=== PATIENT | female | born 1985 | race American Indian/Alaskan Native ===

== ENCOUNTER 2018-07-05 00:54 | Emergency (ER) | payer OTHER ==
[2018-07-05] MEDS ORDERED: DUONEB *Not for PRN Use IH ONE ×2 (01:06→01:25)
[2018-07-05] MEDS ORDERED: TYLENOL ONE (01:19)
[2018-07-05] MEDS ORDERED: TYLENOL PO ONE (01:23)
--- NOTE | 2018-07-05 01:46 | XRay Report ---
PROCEDURE: XR CHEST ROUTINE 2V TECHNIQUE: PA and lateral chest radiographs were obtained. HISTORY: cough COMPARISONS: None. FINDINGS: Heart: Normal. Mediastinum/Vessels: Normal. Lungs/Pleural space: Normal. Bony thorax: No acute osseous abnormality. IMPRESSION: Normal examination. This document is electronically signed by Torri Noland DO., July 05 2018 01:44:04 AM ET
[2018-07-05 02:01] LABS: Hematocrit 39.8 % (30.3-42.9); Hemoglobin 13.6 gm/dl (10.1-14.3); Mean Corpuscular HGB Conc 34 % (30-34); Mean Corpuscular Volume 93 fl (79-97); Platelet Count 235 K/mm3 (140-440); Red Blood Count 4.29 M/mm3 (3.65-5.03); Red Cell Distribution Width 14.1 % (13.2-15.2)
[2018-07-05 02:10] LABS: Bacteria,Urine 1+ /HPF (Negative); Bilirubin,Urine NEG (Negative); Blood,Urine SM (Negative); Color,Urine Yellow (Yellow); Mucus,Urine 3+ /HPF; Protein,Urine <15 mg/dL mg/dL (Negative); Urobilinogen,Urine < 2.0 mg/dL (<2.0); WBC,Urine < 1.0 /HPF (0.0-6.0)
--- NOTE | 2018-07-05 02:10 | Emergency Department Report ---
ED General Adult HPI - General Chief complaint: Adult Asthma Stated complaint: CHEST PAIN, VOMITING, CHILLS Time Seen by Provider: 07/05/18 01:43 Source: patient Mode of arrival: Ambulatory Limitations: No Limitations - History of Present Illness Initial comments: 32-year-old -[place] female presents to the emergency room for chest pain with cough diarrhea, nausea vomiting and chills. Patient states this hasn't be going on for 24 hours. Patient reports she has a past medical history bronchitis hypertension and pneumonia. Patient reports her primary care provider is at [facility]. Patient complains of body aches. Last menstrual period was 06/29/2018. -: days(s) (1) Location: chest Severity scale (0 -10): 10 Quality: aching Consistency: constant Improves with: none Worsens with: none Associated Symptoms: cough, fever/chills, loss of appetite, malaise, nausea/vomiting Treatments Prior to Arrival: none - Related Data Previous Rx's Medication Instructions Recorded Last Taken Type Azithromycin [Zithromax Z-JAXON] 250 mg PO QDAY #6 tablet 07/05/18 Unknown Rx Benzonatate [Tessalon Perle] 100 mg PO BID PRN #14 capsule 07/05/18 Unknown Rx Ibuprofen [Motrin 800 MG tab] 800 mg PO Q8HR PRN #15 tablet 07/05/18 Unknown Rx Oseltamivir [Tamiflu] 75 mg PO BID #10 cap 07/05/18 Unknown Rx Allergies Allergy/AdvReac Type Severity Reaction Status Date / Time No Known Allergies Allergy Verified 07/05/18 01:15 ED Review of Systems ROS: Stated complaint: CHEST PAIN, VOMITING, CHILLS Other details as noted in HPI Comment: All other systems reviewed and negative Constitutional: chills, fever, weakness Eyes: denies: eye pain, eye discharge, vision change ENT: denies: ear pain, throat pain Respiratory: cough Cardiovascular: chest pain (with cough) Gastrointestinal: nausea, vomiting, diarrhea Musculoskeletal: back pain, myalgia. denies: joint swelling, arthralgia Skin: denies: rash, lesions Neurological: denies: headache, weakness, paresthesias Psychiatric: denies: anxiety, depression Hematological/Lymphatic: denies: easy bleeding, easy bruising ED Past Medical Hx - Past Medical History Hx Hypertension: Yes Hx Asthma: Yes Hx COPD: Yes Additional medical history: Pneumonia, Anemia - Surgical History Past Surgical History?: Yes Additional Surgical History: Myomectony - Social History Smoking Status: Current Every Day Smoker Substance Use Type: None - Medications Home Medications: Home Medications Medication Instructions Recorded Confirmed Last Taken Type Azithromycin [Zithromax Z-JAXON] 250 mg PO QDAY #6 tablet 07/05/18 Unknown Rx Benzonatate [Tessalon Perle] 100 mg PO BID PRN #14 capsule 07/05/18 Unknown Rx Ibuprofen [Motrin 800 MG tab] 800 mg PO Q8HR PRN #15 tablet 07/05/18 Unknown Rx Oseltamivir [Tamiflu] 75 mg PO BID #10 cap 07/05/18 Unknown Rx ED Physical Exam - General Limitations: No Limitations General appearance: alert, in no apparent distress - Head Head exam: Present: atraumatic, normocephalic - Eye Eye exam: Present: EOMI - ENT ENT exam: Present: mucous membranes moist - Neck Neck exam: Present: normal inspection - Respiratory Respiratory exam: Present: normal lung sounds bilaterally. Absent: respiratory distress - Cardiovascular Cardiovascular Exam: Present: regular rate, normal rhythm. Absent: systolic murmur, diastolic murmur, rubs, gallop - GI/Abdominal GI/Abdominal exam: Present: soft, normal bowel sounds - Neurological Exam Neurological exam: Present: alert, oriented X3 - Psychiatric Psychiatric exam: Present: normal affect, normal mood - Skin Skin exam: Present: warm, dry, intact, normal color. 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 HISTORY: cough COMPARISONS: None. FINDINGS: Heart: Normal. Mediastinum/Vessels: Normal. Lungs/Pleural space: Normal. Bony thorax: No acute osseous abnormality. IMPRESSION: Normal examination. This document is electronically signed by Torri Noland DO., July 05 2018 01:44:04 AM ET Transcribed By: [facility] Dictated By: TORRI NOLAND MD Electronically Authenticated By: TORRI NOLAND MD Signed Date/Time: 07/05/18145 DD/ 4 TD/TT: 07/05/18134 - Medical Decision Making Patient has been evaluated by this provider in fast track. Patient said full workup with chest x-ray. Patient be discharged with presumptive influenza. Patient be discharged on Tamiflu 75 mg twice a day and a azithromycin. Patient WILL be discharged on ibuprofen for pain management. Patient instructed to increase her fluid intake and advance her diet as tolerated and take medications as prescribed. Critical care attestation.: If time is entered above; I have spent that time in minutes in the direct care of this critically ill patient, excluding procedure time. ED Disposition Clinical Impression: Viral syndrome Disposition: DC-01 TO HOME OR SELFCARE Is pt being admited?: No Does the pt Need Aspirin: No Condition: Stable Instructions: Influenza (ED), Viral Syndrome (ED) Additional Instructions: Please completed antibiotics in antiviral medication. Pain medication as needed increase her fluid intake advance her diet as tolerated. Allow anybody to rest. Prescriptions: Ibuprofen [Motrin 800 MG tab] 800 mg PO Q8HR PRN #15 tablet PRN Reason: Pain , Severe (7-10) Oseltamivir [Tamiflu] 75 mg PO BID #10 cap Benzonatate [Tessalon Perle] 100 mg PO BID PRN #14 capsule PRN Reason: Cough Azithromycin [Zithromax Z-JAXON] 250 mg PO QDAY #6 tablet Referrals: GAY YORK MD [Primary Care Provider] - 3-5 Days Forms: Accompanied Note, Work/School Release Form(ED)
[2018-07-05 02:11] LABS: HCG Qualitative,Urine Negative (Negative)
[2018-07-05 02:25] LABS: BUN/Creatinine Ratio 6; Blood Urea Nitrogen 5 mg/dL (7-17); Calcium 9.4 mg/dL (8.4-10.2); Hemolysis Index 3
[2018-07-05 02:27] LABS: Alanine Aminotransferase 14 units/L (7-56); Albumin 4.1 g/dL (3.9-5)
[2018-07-05] MEDS ORDERED: NACL 0.9% 1000 ML 1,000 ML IV ONE ×2 (02:28→05:23)
[2018-07-05 02:37] LABS: Bilirubin,Direct < 0.2 mg/dL (0-0.2)
[2018-07-05 03:03] LABS: Basophils % (Manual) 0 % (0.0-1.8); Eosinophils % (Manual) 0 % (0.0-4.3); Total Cells Counted 100
[2018-07-05 03:04] LABS: Anisocytosis 1+; Platelet Estimate Consistent w Auto
[2018-07-05] MEDS ORDERED: IBUPROFEN PO ONE (04:19)
[2018-07-05 06:53] VITALS: BP 136/79
== END 2018-07-05 07:28 | disposition home or self-care (01) ==
LOC: ED 00:54
DX: B34.9 Viral infection, unspecified (principal); J44.9 Chronic obstructive pulmonary disease, unspecified; I10 Essential (primary) hypertension; F17.200 Nicotine dependence, unspecified, uncomplicated; Z87.01 Personal history of pneumonia (recurrent); Z86.2 Personal history of diseases of the blood and blood-forming organs and certain disorders involving the immune mechanism
CPT/HCPCS: 36415; 71046; 80048; 80076; 81001; 81025; 83690; 84484; 85007; 85025; 94640; 96360; 96361; 99285; J7030